=== PATIENT | female | born 1950 | race Caucasian/White ===

== ENCOUNTER 2016-05-21 10:22 | Inpatient (IN) | payer MEDICARE ==
[2016-05-21 11:25] LABS: Hematocrit 25 % (35-47); Hemoglobin 6.8 g/dl (12.0-16.0); Mean Corpuscular HGB Conc 27 g/dl (31-36); Mean Corpuscular Hemoglobin 14 pg (27-31); Mean Corpuscular Volume 51 fL (80-97); Red Blood Count 4.91 10^6/ul (4.0-5.4); Red Cell Distribution Width 23 % (10.5-15); White Blood Count 5.6 10^3/ul (3.5-10.8)
[2016-05-21 11:28] LABS: Comments Flag Yes
[2016-05-21 11:29] LABS: Add Diff/Slide Review? Slide Review Added
[2016-05-21 11:47] LABS: ALT 20 U/L (7-52); AST 24 U/L (13-39); Albumin 3.9 g/dL (3.2-5.2); Alkaline Phosphatase 65 U/L (34-104); Anion Gap 7 mmol/L (2-11); BUN/Creatinine Ratio 15.1 (8-20); Blood Urea Nitrogen 14 mg/dL (6-24); CO2 Carbon Dioxide 25 mmol/L (22-32); Calcium 9.1 mg/dL (8.6-10.3); Chloride 101 mmol/L (101-111); EGFR African American 77.6 (>60); EGFR Non-African American 60.3 (>60); Globulin 2.4 g/dL (2-4); Glucose 124 mg/dL (70-100); Potassium 3.3 mmol/L (3.5-5.0); Sodium 133 mmol/L (133-145); Total Protein 6.3 g/dL (6.4-8.9)
[2016-05-21 11:53] LABS: Add Path Review? YES; Hypochromasia 2+; Microcytosis 3+; Target Cells 1+; Tear Drop Cells 1+
[2016-05-21] MEDS ORDERED: Potassium Chlor TAB* 20 MEQ TAB.ER PO ONE (12:46)
[2016-05-21 13:27] LABS: Corrected Retic Count 0.9 % (0.5-1.5); Immature Retic Fraction 0.48; Mean Platelet Volume 9 um3 (7.4-10.4)
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
[2016-05-21 13:30] LABS: Comments Flag Yes
[2016-05-21] MEDS ORDERED: Acetaminophen TAB* 325 MG PO PRN (13:43)
[2016-05-21 14:00] LABS: Lipase 28 U/L (11.0-82.0)
[2016-05-21 14:12] LABS: Total Iron Binding Capacity 514 mcg/dL (250-450); Transferrin 367 mg/dL (203-362)
[2016-05-21 14:32] LABS: Ferritin < 10.0 ng/mL (11-307)
[2016-05-21 14:36] LABS: Folate > 20.00 ng/mL (>3.99)
[2016-05-21 14:37] LABS: Vitamin B12 849 pg/mL (180-914)
[2016-05-21 14:39] LABS: Iron < 15 ug/dL (50-212)
[2016-05-21] MEDS: Pantoprazole IV* 40 MG IV ONE ×2 (15:04→15:34)
[2016-05-21] MEDS: KCL 20 MEQ/100 ML IVPREMIX* 20 MEQ/100 ML BAG IV SCH ×2 (15:16→21:19)
[2016-05-21] MEDS ORDERED: Midazolam* 1 MG/ML 10 ML VIAL (10 MG) ONE (17:03)
[2016-05-21] MEDS ORDERED: fentaNYL* 50 MCG/ML 2 ML VIAL (100 MCG VIAL) ONE (17:04)
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
[2016-05-21] MEDS: Pantoprazole IV* 80 MG in NS 0.9% 250 ML* 250 ML IVPB SCH (21:00)
[2016-05-21] MEDS: NS 0.9% 1000 ML* 1,000 ML IV SCH (21:00)
[2016-05-21] MEDS ORDERED: Temazepam CAP* 15 MG PO PRN (21:00)
[2016-05-21] MEDS ORDERED: KCL 20 MEQ/100 ML IVPREMIX* 20 MEQ/100 ML BAG ONE (21:17)
[2016-05-22] MEDS ORDERED: PEG 3000 GI LAVAGE* 1 GALLON PO ONE (04:00)
[2016-05-22] MEDS: Pantoprazole IV* 80 MG in NS 0.9% 250 ML* 250 ML IVPB SCH (04:16)
[2016-05-22] MEDS: NS 0.9% 1000 ML* 1,000 ML IV SCH ×2 (06:00→16:43)
[2016-05-22] MEDS ORDERED: Pantoprazole IV* 80 MG in NS 0.9% 250 ML* 250 ML IVPB SCH (06:30)
[2016-05-22 07:29] LABS: BUN/Creatinine Ratio 9.1 (8-20); Calcium 8.7 mg/dL (8.6-10.3); EGFR African American 96.5 (>60); Hematocrit 29 % (35-47); Hemoglobin 8.7 g/dl (12.0-16.0); Mean Corpuscular HGB Conc 30 g/dl (31-36); Mean Corpuscular Hemoglobin 17 pg (27-31); Mean Corpuscular Volume 59 fL (80-97); Potassium 4.2 mmol/L (3.5-5.0); Red Cell Distribution Width 31 % (10.5-15); White Blood Count 5.8 10^3/ul (3.5-10.8)
[2016-05-22 07:30] LABS: Comments Flag Yes
[2016-05-22 07:31] LABS: Add Diff/Slide Review? Slide Review Added
[2016-05-22] MEDS ORDERED: fentaNYL* 50 MCG/ML 2 ML VIAL (100 MCG VIAL) ONE (08:37)
[2016-05-22] MEDS ORDERED: Midazolam* 1 MG/ML 10 ML VIAL (10 MG) ONE (08:37)
[2016-05-22] MEDS ORDERED: Pneumococcal *Vac Polyvalent 0.5 ML VIAL IM ONE (09:00)
--- NOTE | 2016-05-22 13:29 | PRO ---
DATE OF PROCEDURE: 05/21/16 - ROOM #421 PROCEDURE: Upper endoscopy. MEDICINES USED: Versed 5 mg IV, Fentanyl 25 mcg IV. NARRATIVE: This is a 66-year-old woman who was admitted today with anemia, recurrent abdominal pain, and weight loss. She has described abdominal pain postprandially for the last month and believes she has lost about 15 pounds. She was evaluated at the [facility] which included blood tests showing anemia and was instructed to come to our hospital. On arrival here, she had a hemoglobin of 6.8 with an MCV of 51. She was describing abdominal pain. Because of her symptoms, upper endoscopy is now being carried out. PROCEDURE IN DETAIL: After the procedure was discussed with the patient, risks and benefits were outlined, written consent was obtained. The patient was placed in the left lateral decubitus position and conscious sedation was administered. A video diagnostic gastroscope was inserted orally and passed very carefully into the esophagus. The esophagus, stomach, and duodenum to the second to third portion were visualized. The patient tolerated the procedure well, there were no immediate complications. FINDINGS: The esophagus was normal. There was no evidence of erosive change, stricture, or any inflammatory change. The stomach was entered. There was no blood in the stomach. There was a trace amount of bile. The gastric mucosa was normal without any ulceration, mass, or inflammatory change. There was no evidence of a hiatal hernia when viewed in retroflexion. The pylorus was normal and patent. The duodenum was normal and the second to third portion of the duodenum was normal with a normal folding pattern. CONCLUSION: A normal upper endoscopy. RECOMMENDATIONS: Given the patient's profound anemia and abdominal pain, I would recommend a colonoscopy and that was discussed with her and her over the phone. CC: Sumit Hastings NP* [id number]/[facility] #: [id number] KAYE
[2016-05-22] MEDS ORDERED: Iohexol 300* (CONTRAST) 10 ML SDV IV ONE (15:17)
--- NOTE | 2016-05-22 15:42 | RAD ---
INDICATION: Abdominal pain, GI bleeding. COMPARISON: There are no prior studies available for comparison. TECHNIQUE: A CT scan of the abdomen and pelvis was performed with intravenous and oral contrast following intravenous injection of 72 ml of Omnipaque 300 nonionic contrast. Contiguous axial sections were obtained from the lung bases through the symphysis pubis. Images were reconstructed in the coronal and sagittal planes. FINDINGS: There is a small dependent infiltrate in the left lower lobe suggestive of atelectasis. No pleural effusion is present. There is a small pericardial effusion present. The liver is normal in size without significant focal abnormality. No calcified gallstones are seen. The spleen is mildly enlarged. The pancreas is within normal limits in size. The kidneys and adrenal glands are normal in size. No hydronephrosis is seen. No significant focal renal abnormality is seen. The aorta is normal in caliber and demonstrates homogeneous contrast opacification. No significant enlarged retroperitoneal lymph nodes are seen. The stomach is nondistended. There is moderate distention of the mid and distal small bowel. The very distal ileum appears nondistended. There appears to be a transition point in the pelvis on the right side. The colon is nondistended. These findings are most consistent with a partial small bowel obstruction. The appendix is nonvisualized. There is no evidence for diverticulitis or colitis. The uterus is retroverted and normal in size. No free intraperitoneal air or fluid is seen. No significant focal osseous abnormality is seen. IMPRESSION: 1. SMALL PERICARDIAL EFFUSION. 2. FINDINGS MOST CONSISTENT WITH A PARTIAL DISTAL SMALL BOWEL OBSTRUCTION. 3. MILD SPLENOMEGALY.
--- NOTE | 2016-05-22 17:28 | PN ---
Subjective Date of Service: 05/22/16 Interval History: pt feels better. seen after a negative colonoscopy. Denies abd pain, but had been NPO for most of her time at [facility]. No n/v no BM's Objective Active Medications: Acetaminophen (Tylenol Tab*) 650 mg PO Q4H PRN PRN Reason: FEVER/PAIN Sodium Chloride (Ns 0.9% 1000 Ml*) 1,000 mls @ 75 mls/hr IV PER RATE SAVI Last Admin: 05/22/16 16:43 Dose: 75 mls/hr Temazepam (Restoril Cap*) 15 mg PO BEDTIME PRN PRN Reason: INSOMNIA Vital Signs 05/21/16 05/21/16 05/21/16 18:42 20:00 20:41 Temperature 97.8 F 97.7 F Pulse Rate 62 56 Respiratory 18 18 Rate Blood Pressure 114/52 114/64 (mmHg) O2 Sat by Pulse 98 Oximetry 05/21/16 05/22/16 05/22/16 23:56 01:00 03:28 Temperature 97.3 F Pulse Rate 52 60 Respiratory 16 16 Rate Blood Pressure 126/59 141/62 (mmHg) O2 Sat by Pulse 100 100 Oximetry 05/22/16 05/22/16 05/22/16 07:37 08:00 10:45 Temperature 97.1 F Pulse Rate 58 55 Respiratory 15 16 14 Rate Blood Pressure 131/54 115/45 (mmHg) O2 Sat by Pulse 100 100 Oximetry 05/22/16 05/22/16 11:03 15:37 Temperature 97.1 F 96.5 F Pulse Rate 55 51 Respiratory 14 16 Rate Blood Pressure 115/45 105/45 (mmHg) O2 Sat by Pulse 100 100 Oximetry Oxygen Devices in Use Now: None Appearance: 66 yo F in nAd, AAOx3 Eyes: No Scleral Icterus, PERRLA Ears/Nose/Mouth/Throat: NL Teeth, Lips, Gums, Mucous Membranes Moist Neck: NL Appearance and Movements; NL JVP, Trachea Midline Respiratory: Symmetrical Chest Expansion and Respiratory Effort, Clear to Auscultation Cardiovascular: NL Sounds; No Murmurs; No JVD, RRR Abdominal: NL Sounds; No Tenderness; No Distention Lymphatic: No Cervical Adenopathy Extremities: No Edema, No Clubbing, Cyanosis Skin: No Rash or Ulcers, No Nodules or Sclerosis Neurological: Alert and Oriented x 3 Result Diagrams: 05/22/16 06:45 05/22/16 06:45 Assess/Plan/Problems-Billing Assessment: 66 yo F presents after a bout of gastroenteritis 3 weeks ago with epigastric abd pain and symptomatic anemia. - Patient Problems (1) Abdominal pain Comment: EGD and colonoscopy negative, appreciate 's consult. CT abd showed mild splenomegaly and partial SBO. Pt passes flatus. will monitor x 24H on clears and cont IVF. Stop Protonix gtt. (2) Microcytic anemia Comment: MCV very low. suspect progression of a chronic condition. S/p 2 U PRBC transfusion on 05/21/16, Hb odilon appropiately. Stool heme neg, suspect slow intermittent GI bleed from small bowel. (3) DVT prophylaxis Comment: ambulation.
--- NOTE | 2016-05-22 23:19 | PRO ---
DATE OF PROCEDURE: 05/22/16 - ROOM #421 PROCEDURE: Colonoscopy. MEDICINES: Versed 8 mg IV, Fentanyl 75 mcg IV. NARRATIVE: This is a 66-year-old woman who is currently admitted for iron- deficiency anemia and abdominal pain. She underwent an upper endoscopy yesterday, which was a normal study. She was prepared last night for colonoscopy with a purge and is now undergoing colonoscopy. DESCRIPTION OF PROCEDURE: After the procedure was discussed with the patient, risks and benefits were outlined, written consent was obtained. The patient was placed in the left lateral decubitus position and a rectal exam was performed. The rectal exam was normal without any palpable abnormality. At that point, a colonoscopy was carried out. A video adult flexible colonoscope was inserted anally and advanced very carefully into the cecum. The cecum was identified by the appendiceal orifice and the ileocecal valve. The terminal ileum was briefly intubated. The preparation was good. The patient tolerated the procedure well and there were no immediate complications. FINDINGS: Colonoscopy into the distal terminal ileum was performed. The ileum was inspected for perhaps 15 to 20 cm and entirely normal without any inflammatory change or mass. The colon was thereafter very carefully inspected. The colonic mucosa was normal. Again, there was no mass, polyp, inflammatory change, or evidence of diverticulosis. The submucosal vascular pattern was normal without any evidence of AVM. The rectum was viewed both in the forward view and retroflex manner and was normal as well. CONCLUSION: Normal colonoscopy into the terminal ileum. RECOMMENDATION: Certainly, her presentation remains worrisome. However, with the negative upper endoscopy and colonoscopy, I am going to pursue an abdominal CAT scan. If small bowel source bleeding is considered, then further studies perhaps with capsule endoscopy would be the next step. CC: Sumit Hastings NP* [id number]/[facility] #: [id number] KAYE
[2016-05-23 05:50] LABS: Hematocrit 30 % (35-47); Hemoglobin 8.5 g/dl (12.0-16.0); Mean Corpuscular HGB Conc 29 g/dl (31-36); Mean Corpuscular Hemoglobin 17 pg (27-31); Mean Platelet Volume 10 um3 (7.4-10.4); Red Blood Count 5.16 10^6/ul (4.0-5.4); White Blood Count 7.3 10^3/ul (3.5-10.8)
[2016-05-23 05:53] LABS: Comments Flag Yes; Mean Corpuscular Volume 57 fL (80-97)
[2016-05-23 05:54] LABS: Red Cell Distribution Width 30 % (10.5-15)
[2016-05-23 05:55] LABS: BUN/Creatinine Ratio 4.9 (8-20); Calcium 8.6 mg/dL (8.6-10.3); EGFR African American 89.7 (>60); EGFR Non-African American 69.7 (>60); Potassium 3.5 mmol/L (3.5-5.0)
[2016-05-23] MEDS: NS 0.9% 1000 ML* 1,000 ML IV SCH ×2 (06:17→19:36)
--- NOTE | 2016-05-23 10:51 | PN ---
Subjective Date of Service: 05/23/16 Interval History: Pt still has occasional epigastric pain. No BM since admission. Passing flatus. Objective Active Medications: Acetaminophen (Tylenol Tab*) 650 mg PO Q4H PRN PRN Reason: FEVER/PAIN Sodium Chloride (Ns 0.9% 1000 Ml*) 1,000 mls @ 75 mls/hr IV PER RATE SAVI Last Admin: 05/23/16 06:17 Dose: 75 mls/hr Temazepam (Restoril Cap*) 15 mg PO BEDTIME PRN PRN Reason: INSOMNIA Vital Signs 05/22/16 05/22/16 05/22/16 19:19 20:00 23:11 Temperature 97.3 F 97.9 F Pulse Rate 65 60 Respiratory 16 16 16 Rate Blood Pressure 128/61 113/39 (mmHg) O2 Sat by Pulse 100 99 Oximetry 05/23/16 05/23/16 07:21 07:46 Temperature 98.1 F Pulse Rate 68 Respiratory 16 16 Rate Blood Pressure 130/58 (mmHg) O2 Sat by Pulse 100 Oximetry Oxygen Devices in Use Now: None Appearance: 66 yo F in nAd, aAOx3 Eyes: No Scleral Icterus, PERRLA Ears/Nose/Mouth/Throat: NL Teeth, Lips, Gums, Mucous Membranes Moist Neck: NL Appearance and Movements; NL JVP, Trachea Midline Respiratory: Symmetrical Chest Expansion and Respiratory Effort, Clear to Auscultation Cardiovascular: NL Sounds; No Murmurs; No JVD, RRR Abdominal: - - mild epigastric tenderness, no rbound, no guarding, BS+ Lymphatic: No Cervical Adenopathy Extremities: No Edema, No Clubbing, Cyanosis Skin: No Rash or Ulcers, No Nodules or Sclerosis Neurological: Alert and Oriented x 3, NL Muscle Strength and Tone Result Diagrams: 05/23/16 05:29 05/23/16 05:29 Assess/Plan/Problems-Billing Assessment: 66 yo F presents after a bout of gastroenteritis 3 weeks ago with epigastric abd pain and symptomatic anemia. - Patient Problems (1) Abdominal pain Comment: EGD and colonoscopy negative, appreciate 's consult. CT abd showed mild splenomegaly and partial SBO. Pt passes flatus. Dr. Dee discussed the case with Dr. Sanabria. Plan for possible exploratory laparotomy in the nearest future. (2) Microcytic anemia Comment: MCV very low. suspect progression of a chronic condition. S/p 2 U PRBC transfusion on 05/21/16, Hb odilon appropiately. Stool heme neg, suspect slow intermittent GI bleed from small bowel. (3) DVT prophylaxis Comment: ambulation. Status and Disposition: inpatient for partial SBO
--- NOTE | 2016-05-23 21:34 | CONS ---
CONSULTATION REPORT: DATE OF CONSULT: 05/23/16 HISTORY OF PRESENT ILLNESS: The patient is a 66-year-old female who presented to the hospital here after being seen by her primary doctor and outpatient Gastroenterology and found to be severely anemic. By history, she has been having abdominal symptoms for a little over a month now. Initially, she thought it was kind of like a stomach bug or stomach flu with nausea, vomiting, and a little bit of diarrhea. Over the last couple of weeks, it has been more cramping, pressure, and bloating every time she eats. As such, she has curtailed her oral intake and has lost almost 20 pounds over the last month. She was admitted for dyspnea, weakness, and found to be severely anemic. PAST MEDICAL HISTORY: Pretty benign. She has had no previous abdominal surgery. No chronic abdominal symptoms. Usually has good appetite, good bowel function. No recent accident, injury, or trauma. She does not have any chronic medical illnesses. MEDICATIONS: She denies regular medication. SOCIAL HISTORY: She is a nonsmoker, nondrinker. 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 She lives with her . PHYSICAL EXAM: She is well-developed, somewhat slender-appearing female consistent with stated age. She does not appear acutely ill. She does appear a little pale. Heart is regular. Respirations are easy, unlabored. No unusual sounds. Abdomen is slightly bloated, soft, nontender, mild tympany, not very impressive. No hernias. No incisions. No palpable masses. No guarding or rebound. Extremities are well perfused and without edema. DIAGNOSTIC STUDIES/LAB DATA: Reveal white blood count 7000; hemoglobin 8.5, that is after transfusion, she was 6.8 on presentation; her MCV is 57; platelet count is 177. Her electrolytes are normal. Liver chemistries show normal bilirubin, transaminases, normal lipase, B12, and folate. Iron is not surprisingly very low at 15. Renal function is normal. She has had an upper endoscopy which is benign, a lower endoscopy which is benign. She has had a CT scan of the abdomen which is consistent with partial small bowel obstruction with a transition somewhere in the mid ileum without any definite mass identified. IMPRESSION: A 66-year-old female with approximately a month of abdominal symptoms presenting with microcytic anemia and partial bowel obstruction with negative upper and lower endoscopy. This is suspicious for either a small bowel GIST or small bowel lymphoma and I do not think additional diagnostic imaging is likely to be helpful. I think exploratory laparotomy with an eye towards resolving her small bowel obstruction was indicated and I have discussed this with her fully. She understands the procedure, the rationale, the risks, the uncertainties of the diagnosis at present, and the expected recovery and we will try to plan this in the near future as soon as the operative schedule permits. CC: Dr. Romeo Sanabria; [facility] * [id number]/[facility] #: [id number] MTDD
[2016-05-24 09:20] LABS: Hematocrit 31 % (35-47); Hemoglobin 8.5 g/dl (12.0-16.0)
[2016-05-24 09:24] LABS: Comments Flag Yes
[2016-05-24] MEDS ORDERED: GENTAMICIN ADULT IVPB ONE (09:30)
[2016-05-24] MEDS ORDERED: NS 0.9% IVPB ONE (09:30)
[2016-05-24] MEDS ORDERED: metroNIDAZOLE IV 500 MG/100ML* 500 MG/100 ML BAG IVPB ONE (10:00)
[2016-05-24] MEDS ORDERED: fentaNYL* 50 MCG/ML 5 ML VIAL (250 MCG VIAL) ONE (11:09)
[2016-05-24] MEDS ORDERED: Rocuronium* 10 MG/ML VIAL ONE (11:09)
[2016-05-24] MEDS ORDERED: Bupivacaine 0.25% SDV* 30 ML ONE (11:10)
[2016-05-24] MEDS ORDERED: Midazolam* 1 MG/ML 2 ML VIAL (2 MG) ONE (11:10)
[2016-05-24] MEDS ORDERED: Propofol* 10 MG/ML 20 ML BTL IV PUSH ONE (11:10)
[2016-05-24] MEDS ORDERED: KETAMINE HCL* 50 MG/ML 10 ML VIAL ONE (11:27)
[2016-05-24] MEDS ORDERED: Glycopyrrolate IV* 0.2 MG/ML 1 ML VIAL ONE (12:13)
[2016-05-24] MEDS ORDERED: Neostigmine Methylsulfate* 2 MG/2 ML SYRINGE ONE (12:13)
[2016-05-24] MEDS ORDERED: Ondansetron INJ* 2 MG/ML VIAL IV PRN ×2 (13:26→13:56)
[2016-05-24] MEDS ORDERED: Ketorolac INJ* 30 MG/ML 1 ML VIAL IV PRN (13:26)
--- NOTE | 2016-05-24 13:55 | SURGPN ---
Brief Operative Note - Surgery Procedures: Procedures OPERATIVE REPORT PRE-OP: High Grade small bowel obstruction, anemia POST-OP:Same, small bowel mass in agk-ts-yguyeu ileum causing near complete obstruction PROCEDURE: Exploratory laparotomy with small bowel resection and primary anastomosis, biopsy of mesenteric implant in terminal ileum SURGEON: MD Yaritza ANESTHESIA:Dr. Miller, General ASST: VARSHA Grubbs; VARSHA Abbott IVF: 900 cc crystalloid EBL: < 100 cc SPECIMEN: 1. Portion of ileum 2. Distal small bowel mesentery implant DRAIN: none URINE: 500 cc WOUND CLASS: 3 COMPLICATIONS: none TO PACU
[2016-05-24] MEDS ORDERED: Morphine PCA ADULT* 5 MG/ML 30 ML PCA SCH (14:00)
[2016-05-24] MEDS ORDERED: fentaNYL* 50 MCG/ML 2 ML VIAL (100 MCG VIAL) ONE ×4 (14:08→15:15)
[2016-05-24] MEDS: fentaNYL* 50 MCG/ML 2 ML VIAL (100 MCG VIAL) IV PRN ×5 (14:09→14:58)
[2016-05-24] MEDS ORDERED: Morphine PCA ADULT* 5 MG/ML 30 ML ONE (14:14)
[2016-05-24] MEDS ORDERED: Ondansetron INJ* 2 MG/ML VIAL ONE (14:16)
[2016-05-24] MEDS ORDERED: Ketorolac INJ* 30 MG/ML 1 ML VIAL ONE (14:20)
[2016-05-24] MEDS ORDERED: HYDROmorphone INJ* 1 MG/ML CARPUJECT SYRINGE IV SLOW PU ONE (15:27)
[2016-05-24] MEDS ORDERED: Midazolam* 1 MG/ML 2 ML VIAL (2 MG) IV ONE (15:31)
[2016-05-24] MEDS ORDERED: HYDROmorphone INJ* 1 MG/ML CARPUJECT SYRINGE ONE (15:37)
[2016-05-24] MEDS ORDERED: Magnesium Sulfate 1 GM IV* 1 GM/100 ML BAG IV ONE (16:00)
[2016-05-24] MEDS ORDERED: HYDROmorphone PCA* 20 MG/20 ML PCA.SYRING ONE (16:29)
[2016-05-24] MEDS ORDERED: HYDROmorphone PCA* 20 MG/20 ML PCA.SYRING PCA SCH (17:00)
[2016-05-24] MEDS: Heparin VIAL(*) 5000 UNITS/ML VIAL (FIVE THOUSAND) SUBCUT SCH (21:59)
[2016-05-24] MEDS: Ketorolac INJ* 15 MG/ML 1 ML VIAL IV PUSH PRN (23:37)
[2016-05-25] MEDS: NS 0.9% 1000 ML* 1,000 ML IV SCH ×2 (03:55→18:34)
--- NOTE | 2016-05-25 05:05 | OP ---
DATE OF OPERATION: 05/24/16 - ROOM #334 DATE OF : 50 SURGEON: Joey Vigil MD DRY COLOR MIXER: 1. VARSHA E[place] 2. VARSHA Williamson ANESTHESIOLOGIST: Daniel Miller DO ANESTHESIA: General PRE-OP DIAGNOSES: 1. High-grade partial small bowel obstruction. 2. Profound microcytic anemia. POST-OP DIAGNOSES: 1. High-grade partial small bowel obstruction. 2. 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 3. Small mesenteric nodule in the mesentery of the terminal ileum. OPERATIVE PROCEDURE: 1. Exploratory laparotomy with small bowel resection and removal of mass with primary stapled anastomosis. 2. Biopsy of small bowel mesenteric implant. ESTIMATED BLOOD LOSS: Less than 100 cc. IV FLUIDS: 900 cc crystalloid. URINE OUTPUT: 500 cc. SPECIMENS: 1. Portion of small bowel to include small bowel mass. 2. Small bowel mesenteric deposit or implant. WOUND CLASSIFICATION: III. DRAINS: None. COMPLICATIONS: None. FINDINGS: In the bsu-rt-ofriit terminal ileum approximately 3.5 feet proximal to the ileocecal valve with a firm mass causing the small bowel to knuckle upon itself causing a near complete obstruction with proximally dilated small bowel and collapsed bowel distally. There was also apparent involvement of the associated and mesentery and lymph nodes in proximity as well as what appeared to be a tumor extension into the mesentery of the small bowel at the base at the mesentery/bowel boundary. Liver, gallbladder, the remainder of the small bowel as well as the colon appeared to be normal. There were, however, multiple small 3-4 mm deposits of raised white appearing nodules on the surface of the mesentery of the distal and more proximal small bowel mesentery and one of these areas was biopsied as above. Uterus and both ovaries were identified and were unremarkable. BRIEF HISTORY: Ms. Violeta Guo is a 66-year-old woman presented and was admitted to the hospitalist service with a month of GI complaints of nausea, crampy abdominal pain, distention and very loose bowel movements. She was found to be profoundly anemic with a microcytic anemia. She underwent both an upper and lower endoscopy which were unremarkable. A CT scan of the abdomen and pelvis showed proximal small bowel dilation with distal collapse worrisome for a bowel obstruction with transition point. However, there was no evidence of mass or other acute findings. In light of her history that may well be consistent with a small bowel obstruction and the finding on the CT scan in conjunction with the normal upper and lower endoscopy treatment plan has been formulated with both the surgical and medical service to include an exploratory laparotomy for a presumed small bowel mass causing obstruction as well as hemorrhage with chronic anemia. The procedure was discussed with the patient and her and the risks that are, but not limited to bleeding, infection, intraabdominal abscess formation, injury to peritoneal and retroperitoneal structures, anastomotic leak, possible ostomy, ileostomy and/or colostomy, the risk of abscess formation and the risk of general anesthesia, deep vein thrombosis, prolonged hospital recovery times were all explained. DESCRIPTION OF PROCEDURE: Preoperative antibiotics were administered, written and informed consent was obtained and the abdomen was marked with an indelible ink. The patient was taken to the operating room placed in supine position, sequential compression devices and a warming blanket were applied. General anesthesia was administered. A Calderon catheter was inserted. A nasogastric tube was inserted for the case, but this was discontinued at the end of the procedure. The abdomen was prepped and draped in the usual sterile fashion. Time-out verification was completed. Next, a midline incision from just above the umbilicus to midway between the umbilicus and pubic bone was then made with a sharp knife and peritoneal cavity was entered under direct vision. There was a small amount of serous fluid in the abdominal cavity and immediately noted was a partially distended transverse colon and left colon. The incision was extended slightly superior to the umbilicus and I was able to palpate the entire liver and visualize this. It appeared to be unremarkable without evidence of mass and its surface appeared to be normal in color and contour. The gallbladder was normal. I appreciate no abnormality palpated in the gallbladder. The stomach was normal. The entire colon which was gas filled was unremarkable including the right colon, transverse colon, descending, and rectum. The both ovaries were identified. They were small and atrophic and the uterus was normal. No evidence of neoplastic process was noted here. I was then able to identify the small bowel starting at the ligament of Treitz. This was not particularly distended; however, we were able to follow this distally and it progressively became more distended somewhat more edematous with a thicker wall consistent with obstruction and at about the distal part of the mid ileum, there was a "knuckled area" of small bowel with an obvious mass which obviously involved the serosa and extended into the mesentery of the small bowel consistent with a neoplastic process most likely a malignant lesion causing a high-grade bowel obstruction. The bowel distal to this was collapsed. There were also some enlarged nodes in the mesentery, which were easily palpable. In addition, there was a small nodule on the distal small bowel mesentery which was excised and sent separately for specimen as well. Also noted were multiple of these deposits in the more proximal and distal mesentery of the small bowel. With further careful evaluation there seemed to be lymph nodes in the mesentery of the small bowel at the site of the tumor and also some verrucous type implants in the mesentery. Next, a generous margin of both proximal and distal margin was identified in anticipation of resection and the proximal and distal portion of small bowel were divided with two separate blue loads of SAM 80 stapler. The mesentery was then divided to include as many lymph nodes and the obvious mass as possible. The mesentery was divided with a combination of both the handheld LigaSure device as well as ligation with 2-0 silk sutures. The specimen was sent in fresh saline after discussion with Pathology so that appropriate studies could be done and decision made by Pathology as to how to prepare the specimen for analysis in light of the unknown diagnosis. Next, the planned anastomosis was then performed. The bowel came together nicely with no tension in a stapled functional end-to-end [id number] anastomosis using the SAM 80 stapler and the long axis of the bowel was fired and the common rent was closed with the TA 90 blue stapler load. The anastomosis was under no tension, the entire bowel was viable and suture lines were oversewn with interrupted 3-0 silk sutures. Mesenteric rent was closed with interrupted 3-0 silk sutures as well. The entire abdomen was then thoroughly irrigated and hemostasis was assured. All sponge, needle, and laparotomy counts were reported as correct. The small bowel was placed back in the abdominal cavity and the midline fascia was then closed with interrupted #1 Polysorb suture. The skin was approximated with stapling device and dry sterile dressings were applied. The patient tolerated the procedure well, was taken to the recovery room in stable condition. CC: [facility]; [facility]* [id number]/[facility] #: [id number] KAYE
[2016-05-25] MEDS: Heparin VIAL(*) 5000 UNITS/ML VIAL (FIVE THOUSAND) SUBCUT SCH ×3 (05:33→22:29)
[2016-05-25] MEDS: Ketorolac INJ* 15 MG/ML 1 ML VIAL IV PUSH PRN (05:34)
[2016-05-25 06:49] LABS: Hematocrit 30 % (35-47); Hemoglobin 8.7 g/dl (12.0-16.0); Mean Corpuscular HGB Conc 29 g/dl (31-36); Mean Corpuscular Hemoglobin 16 pg (27-31); Mean Platelet Volume 9 um3 (7.4-10.4); Red Blood Count 5.33 10^6/ul (4.0-5.4)
[2016-05-25 06:51] LABS: Comments Flag Yes; Mean Corpuscular Volume 57 fL (80-97)
[2016-05-25 06:52] LABS: Red Cell Distribution Width 30 % (10.5-15)
[2016-05-25 07:11] LABS: BUN/Creatinine Ratio 8.5 (8-20); Calcium 8.2 mg/dL (8.6-10.3); EGFR African American 105.9 (>60); EGFR Non-African American 82.4 (>60); Potassium 3.2 mmol/L (3.5-5.0)
--- NOTE | 2016-05-25 07:22 | PN ---
Subjective Date of Service: 05/25/16 Interval History: Adequate pain relief with OPERATIONS CONSULTANT. No flatus. No nauea. No new c/o. Objective Active Medications: Acetaminophen (Tylenol Tab*) 650 mg PO Q4H PRN PRN Reason: FEVER/PAIN Heparin Sodium (Porcine) (Heparin Vial(*)) 5,000 units SUBCUT Q8HR [facility] Last Admin: 05/25/16 05:33 Dose: 5,000 units Sodium Chloride (Ns 0.9% 1000 Ml*) 1,000 mls @ 75 mls/hr IV PER RATE [facility] Last Admin: 05/25/16 03:55 Dose: 75 mls/hr Hydromorphone HCl (Dilaudid [employer]*) 20 mg in 20 mls @ 0 mls/hr OPERATIONS CONSULTANT .change Q24H [facility]; Per Protocol PRN Reason: Protocol Iron Sucrose 200 mg/ Sodium (Chloride) 260 mls @ 260 mls/hr IVPB DAILY [facility] Stop: 05/26/16 15:00 Ketorolac Tromethamine (Toradol Inj*) 15 mg IV PUSH Q6H PRN PRN Reason: PAIN Last Admin: 05/25/16 05:34 Dose: 15 mg Ondansetron HCl (Zofran Inj*) 4 mg IV Q6H PRN PRN Reason: NAUSEA Temazepam (Restoril Cap*) 15 mg PO BEDTIME PRN PRN Reason: INSOMNIA Vital Signs 05/24/16 05/24/16 05/24/16 08:00 08:14 13:55 Temperature 98.8 F 97.0 F Pulse Rate 58 60 Respiratory 18 16 18 Rate Blood Pressure 121/58 154/82 (mmHg) O2 Sat by Pulse 100 100 Oximetry 05/24/16 05/24/16 05/24/16 14:00 14:05 14:09 Temperature Pulse Rate 54 55 Respiratory 20 20 20 Rate Blood Pressure 162/66 152/67 (mmHg) O2 Sat by Pulse 100 99 Oximetry 05/24/16 05/24/16 05/24/16 14:10 14:15 14:27 Temperature Pulse Rate 53 55 Respiratory 20 22 20 Rate Blood Pressure 160/60 158/60 (mmHg) O2 Sat by Pulse 100 100 Oximetry 05/24/16 05/24/16 05/24/16 14:28 14:30 14:39 Temperature Pulse Rate 55 55 Respiratory 20 20 20 Rate Blood Pressure 158/60 167/67 (mmHg) O2 Sat by Pulse 100 100 Oximetry 05/24/16 05/24/16 05/24/16 14:45 14:58 15:00 Temperature 97.2 F Pulse Rate 59 48 Respiratory 16 22 18 Rate Blood Pressure 174/59 175/66 (mmHg) O2 Sat by Pulse 100 100 Oximetry 05/24/16 05/24/16 05/24/16 15:15 15:27 15:30 Temperature 98.1 F Pulse Rate 52 67 58 Respiratory 20 14 20 Rate Blood Pressure 171/63 148/51 161/65 (mmHg) O2 Sat by Pulse 100 100 100 Oximetry 05/24/16 05/24/16 05/24/16 15:38 15:45 16:00 Temperature 98.2 F Pulse Rate 57 61 Respiratory 22 22 26 Rate Blood Pressure 168/64 162/66 (mmHg) O2 Sat by Pulse 100 100 Oximetry 05/24/16 05/24/16 05/24/16 16:15 16:30 16:45 Temperature Pulse Rate 60 64 63 Respiratory 20 17 14 Rate Blood Pressure 158/64 160/67 159/65 (mmHg) O2 Sat by Pulse 100 100 100 Oximetry 05/24/16 05/24/16 05/24/16 16:54 17:00 17:15 Temperature 96.8 F Pulse Rate 61 67 66 Respiratory 17 15 15 Rate Blood Pressure 160/67 170/64 155/68 (mmHg) O2 Sat by Pulse 100 100 100 Oximetry 05/24/16 05/24/16 05/24/16 17:30 18:00 18:03 Temperature 98.1 F Pulse Rate 68 67 Respiratory 16 14 14 Rate Blood Pressure 143/66 148/51 (mmHg) O2 Sat by Pulse 100 100 100 Oximetry 05/24/16 05/24/16 05/24/16 18:30 19:00 19:12 Temperature 98.4 F Pulse Rate 67 Respiratory 14 14 14 Rate Blood Pressure 137/59 (mmHg) O2 Sat by Pulse 100 100 100 Oximetry 05/24/16 05/24/16 05/24/16 19:30 20:15 20:30 Temperature Pulse Rate Respiratory 14 14 14 Rate Blood Pressure (mmHg) O2 Sat by Pulse 96 97 Oximetry 05/24/16 05/24/16 05/24/16 20:58 21:30 22:30 Temperature 98.6 F Pulse Rate 98 Respiratory 12 13 15 Rate Blood Pressure 136/68 (mmHg) O2 Sat by Pulse 99 98 98 Oximetry 05/24/16 05/24/16 05/25/16 23:30 23:33 01:30 Temperature 98.9 F Pulse Rate 102 Respiratory 20 20 17 Rate Blood Pressure 127/71 (mmHg) O2 Sat by Pulse 97 100 98 Oximetry 05/25/16 05/25/16 05/25/16 02:04 03:30 05:30 Temperature 98.0 F Pulse Rate 95 Respiratory 17 16 17 Rate Blood Pressure 108/45 (mmHg) O2 Sat by Pulse 99 97 96 Oximetry 05/25/16 05/25/16 06:30 07:00 Temperature Pulse Rate Respiratory 17 16 Rate Blood Pressure (mmHg) O2 Sat by Pulse 96 97 Oximetry Oxygen Devices in Use Now: None Appearance: Alert, partly up in bed. In good spirits. Looks comfortable. Eyes: No Scleral Icterus Ears/Nose/Mouth/Throat: Clear Oropharnyx, Mucous Membranes Moist Neck: NL Appearance and Movements; NL JVP, No Thyroid Enlargement, Masses Respiratory: Symmetrical Chest Expansion and Respiratory Effort, Clear to Auscultation, Clear to Percussion Cardiovascular: NL Sounds; No Murmurs; No JVD, RRR, No Edema, - Abdominal: - - Soft, mildly tender. No BS. No mass. Extremities: No Edema, No Clubbing, Cyanosis, - Skin: No Rash or Ulcers, No Nodules or Sclerosis, - Neurological: Alert and Oriented x 3, NL Sensation Result Diagrams: 05/25/16 05:47 05/25/16 05:47 Assess/Plan/Problems-Billing Assessment: 66 yo F presents after a bout of gastroenteritis 3 weeks ago with epigastric abd pain and symptomatic anemia. - Patient Problems (1) SBO (small bowel obstruction) Current Visit: Yes Status: Acute Code(s): K56.69 - OTHER INTESTINAL OBSTRUCTION SNOMED Code(s): 252825142 Comment: S/P SB resection wtih primary ansatamosi, bx mesenteric implant. Post-op care per Dr. Morrison. (2) Iron deficiency anemia Current Visit: Yes Status: Acute Code(s): D50.9 - IRON DEFICIENCY ANEMIA, UNSPECIFIED SNOMED Code(s): 99183010 Comment: Iron studies confirm iron deficiency. 2 doses iron sucrose ordered. 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 Pathology pending. Status and Disposition: inpatient for partial SBO
--- NOTE | 2016-05-25 08:42 | PN ---
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 without nausea or vomiting Objective: Temp Pulse Resp BP Pulse Ox 97.4 F 82 18 121/56 100 05/25/16 07:41 05/25/16 07:41 05/25/16 07:41 05/25/16 07:41 05/25/16 07:41 Intake & Output 05/23/16 05/24/16 05/25/16 05/26/16 06:59 06:59 06:59 06:59 Intake Total 3049 2619 2914 Output Total 3975 Balance 3049 2619 -1061 Weight 118 lb Intake: IV Fluids 8096 880 2719 GENTAMYCIN 250MG IV 250 LR 1200 NS (0.9%) 1468 844 954 IVPB 131 Protonix 131 Oral 1450 1775 510 Output: Fischer 3975 Other: Estimated Void Medium # Bowel Movements 0 # Voids 3 3 PEX: Comfortable in chair Lungs are clear with decreased breath sounds in the bases Abdomen is soft and non-distended. Dressing is intact. Extremities without edema Laboratory Results - last 24 hr 05/21/16 05/24/16 05/24/16 11:10 01:23 09:10 WBC RBC Hgb 8.5 L Hct 31 L MCV MCH MCHC RDW Plt Count MPV Hem Pathologist Commnt Sodium Potassium Chloride Carbon Dioxide Anion Gap BUN Creatinine Est GFR ( Amer) Est GFR (Non-Af Amer) BUN/Creatinine Ratio Glucose Calcium Flow Intrp 2-8 Markers Flow Intrp 16+ Markers Blood Type O Positive Antibody Screen Negative 05/24/16 05/25/16 05/25/16 13:30 05:47 05:47 WBC 13.0 H RBC 5.33 Hgb 8.7 L Hct 30 L MCV 57 L MCH 16 L MCHC 29 L RDW 30 H Plt Count 185 MPV 9 Hem Pathologist Commnt Sodium 132 L Potassium 3.2 L Chloride 101 Carbon Dioxide 24 Anion Gap 7 BUN 6 Creatinine 0.71 Est GFR ( Amer) 105.9 Est GFR (Non-Af Amer) 82.4 BUN/Creatinine Ratio 8.5 Glucose 94 Calcium 8.2 L Flow Intrp 2-8 Markers TNP Flow Intrp 16+ Markers TNP Blood Type Antibody Screen Assessment: POD# 1 s/p exlap with small bowel resection of obstructing small bowel mass. Ileus Anemia Hypokalemia Plan: D/C fischer Replete K+ Increase activity PPI and sub q heparin Recheck labs in AM Operative findings discussed with patient and her last night and questions answered.
[2016-05-25] MEDS ORDERED: NS 0.9% 250 ML* 250 ML ONE (08:45)
[2016-05-25] MEDS: Iron Sucrose* 200 MG in NS 0.9% 250 ML* 250 ML IVPB SCH (09:12)
[2016-05-25] MEDS: Potassium Chlor TAB* 20 MEQ TAB.ER PO SCH ×2 (09:12→21:25)
[2016-05-25] MEDS: Pantoprazole IV* 40 MG IV SCH (11:55)
[2016-05-25] MEDS: KCL 10 MEQ/50 ML IVPREMIX* 10 MEQ/50 ML BAG IV SCH ×3 (11:55→17:47)
[2016-05-26] MEDS ORDERED: Prochlorperazine TAB* 10 MG PO PRN (02:38)
[2016-05-26] MEDS: Heparin VIAL(*) 5000 UNITS/ML VIAL (FIVE THOUSAND) SUBCUT SCH ×3 (05:37→21:47)
[2016-05-26 07:15] LABS: BUN/Creatinine Ratio 9.7 (8-20); Calcium 8.6 mg/dL (8.6-10.3); EGFR African American 123.9 (>60); EGFR Non-African American 96.3 (>60); Phosphorus 2.9 mg/dL (2.5-5.0); Potassium 3.9 mmol/L (3.5-5.0)
[2016-05-26] MEDS: NS 0.9% 1000 ML* 1,000 ML IV SCH ×2 (07:44→21:37)
--- NOTE | 2016-05-26 08:24 | PN ---
Progress Note - Progress Note SOAP: Subjective: Without complaint today although she had some nausea in the middle of the night , no vomiting. No flatus or BM, tolerated sips of liquids Ambulating in the halls Pain is adequately controlled. Objective: Temp Pulse Resp BP Pulse Ox 99.1 F 63 16 142/62 95 05/26/16 04:09 05/26/16 04:09 05/26/16 06:30 05/26/16 04:09 05/26/16 06:30 Intake & Output 05/24/16 05/25/16 05/26/16 05/27/16 06:59 06:59 06:59 06:59 Intake Total 2619 2914 1440 1192 Output Total 3975 2900 700 Balance 2619 -1061 -1460 492 Intake: IV Fluids 844 2404 1192 GENTAMYCIN 250MG IV 250 LR 1200 NS (0.9%) 375 807 9327 Oral 4578 609 4305 Output: Urine 2800 700 Calderon 3975 100 Other: Estimated Void Medium # Voids 3 PEX: Comfortable Lungs are CTA Cor is RRR Abd is soft and non-distended. Incision is clean and dry. There are no bowel sounds present. 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 Plan: Will discuss pathology report with patient and today and also present at Tumor Board today-will require Oncology consult D/C DISTANCE EDUCATION FACULTY LIAISON Sips of clear liquids until ileus resolves Increase activity Pul toilet/sub q heparin/PPI
[2016-05-26] MEDS ORDERED: HYDROmorphone INJ* 1 MG/ML CARPUJECT SYRINGE IV SLOW PU PRN (08:30)
[2016-05-26] MEDS: Iron Sucrose* 200 MG in NS 0.9% 250 ML* 250 ML IVPB SCH (08:39)
[2016-05-26] MEDS: Pantoprazole IV* 40 MG IV SCH (08:39)
[2016-05-26] MEDS: Potassium Chlor TAB* 20 MEQ TAB.ER PO SCH ×2 (08:39→20:10)
--- NOTE | 2016-05-26 20:06 | PN ---
Subjective Date of Service: 05/26/16 Interval History: Patient sleeping during my visit. I chose to not wake her. Objective Active Medications: Acetaminophen (Tylenol Tab*) 650 mg PO Q4H PRN PRN Reason: FEVER/PAIN Heparin Sodium (Porcine) (Heparin Vial(*)) 5,000 units SUBCUT Q8HR [facility] Last Admin: 05/26/16 14:53 Dose: 5,000 units Hydromorphone HCl (Dilaudid Iv*) 0.5 mg IV SLOW PU Q1H PRN PRN Reason: PAIN Sodium Chloride (Ns 0.9% 1000 Ml*) 1,000 mls @ 75 mls/hr IV PER RATE [facility] Last Admin: 05/26/16 07:44 Dose: 75 mls/hr Ketorolac Tromethamine (Toradol Inj*) 15 mg IV PUSH Q6H PRN PRN Reason: PAIN Last Admin: 05/25/16 05:34 Dose: 15 mg Ondansetron HCl (Zofran Inj*) 4 mg IV Q6H PRN PRN Reason: NAUSEA Last Admin: 05/26/16 00:17 Dose: 4 mg Pantoprazole Sodium (Protonix Iv*) 40 mg IV DAILY [facility] Last Admin: 05/26/16 08:39 Dose: 40 mg Potassium Chloride (Klor Con Er Tab*) 20 meq PO BID [facility] Last Admin: 05/26/16 08:39 Dose: 20 meq Prochlorperazine (Compazine Tab*) 10 mg PO Q6HR PRN PRN Reason: NAUSEA Last Admin: 05/26/16 02:49 Dose: 10 mg Temazepam (Restoril Cap*) 15 mg PO BEDTIME PRN PRN Reason: INSOMNIA Vital Signs 05/25/16 05/25/16 05/25/16 21:00 22:30 23:00 Temperature Pulse Rate Respiratory 16 16 16 Rate Blood Pressure (mmHg) O2 Sat by Pulse 93 95 Oximetry 05/25/16 05/26/16 05/26/16 23:55 01:00 03:00 Temperature 98.8 F Pulse Rate 64 Respiratory 16 16 16 Rate Blood Pressure 145/57 (mmHg) O2 Sat by Pulse 96 96 96 Oximetry 05/26/16 05/26/16 05/26/16 04:09 05:00 06:30 Temperature 99.1 F Pulse Rate 63 Respiratory 16 16 16 Rate Blood Pressure 142/62 (mmHg) O2 Sat by Pulse 97 95 95 Oximetry 05/26/16 05/26/16 05/26/16 07:00 08:10 08:15 Temperature 98.2 F Pulse Rate 64 Respiratory 15 15 18 Rate Blood Pressure 122/50 (mmHg) O2 Sat by Pulse 97 97 Oximetry 05/26/16 05/26/16 05/26/16 09:00 11:20 15:32 Temperature 97.8 F 98.2 F Pulse Rate 70 63 Respiratory 16 18 18 Rate Blood Pressure 142/57 143/50 (mmHg) O2 Sat by Pulse 94 100 96 Oximetry 05/26/16 19:31 Temperature 98.1 F Pulse Rate 65 Respiratory 16 Rate Blood Pressure 142/61 (mmHg) O2 Sat by Pulse 99 Oximetry Oxygen Devices in Use Now: None Appearance: Lying on her side in bed, asleep. Looks comfortable. Respiratory: Symmetrical Chest Expansion and Respiratory Effort, - - Respirations quiet and regular Result Diagrams: 05/25/16 05:47 05/26/16 06:48 Assess/Plan/Problems-Billing Assessment: 66 yo F presents after a bout of gastroenteritis 3 weeks ago with epigastric abd pain and symptomatic anemia. - Patient Problems (1) SBO (small bowel obstruction) Current Visit: Yes Status: Acute Code(s): K56.69 - OTHER INTESTINAL OBSTRUCTION SNOMED Code(s): 921230085 Comment: S/P SB resection wtih primary ansatamosis, bx mesenteric implant. 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 Post-op care per Dr. Morrison. Pt presented to Tumor Board, awaiting oncology consult. (2) Iron deficiency anemia Current Visit: Yes Status: Acute Code(s): D50.9 - IRON DEFICIENCY ANEMIA, UNSPECIFIED SNOMED Code(s): 41734434 Comment: Iron studies confirm iron deficiency. 2 doses iron sucrose ordered. 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 Pt presented to Tumor Board, awaiting oncology consult. Status and Disposition: inpatient for partial SBO
[2016-05-27] MEDS: Heparin VIAL(*) 5000 UNITS/ML VIAL (FIVE THOUSAND) SUBCUT SCH ×3 (06:03→21:17)
[2016-05-27 07:11] LABS: Hematocrit 28 % (35-47); Hemoglobin 8.3 g/dl (12.0-16.0); Mean Corpuscular HGB Conc 30 g/dl (31-36); Mean Corpuscular Hemoglobin 17 pg (27-31); Mean Corpuscular Volume 58 fL (80-97); Red Cell Distribution Width 32 % (10.5-15); White Blood Count 6.5 10^3/ul (3.5-10.8)
[2016-05-27 07:13] LABS: Comments Flag Yes
[2016-05-27 07:14] LABS: Add Diff/Slide Review? Slide Review Added
--- NOTE | 2016-05-27 07:53 | PN ---
Progress Note - Progress Note SOAP: Subjective: Passed some flatus last night, no BM No N/V--tolerating clear liquids Minimal pain-has not used Dilaudid Objective: Temp Pulse Resp BP Pulse Ox 98.0 F 61 15 127/49 95 05/27/16 03:26 05/27/16 03:26 05/27/16 03:26 05/27/16 03:26 05/27/16 03:26 Intake & Output 05/25/16 05/26/16 05/27/16 05/28/16 06:59 06:59 06:59 06:59 Intake Total 2914 1440 2800 Output Total 3975 2900 3450 Balance -1061 1460 -650 Intake: IV Fluids 2404 2162 GENTAMYCIN 250MG IV 250 LR 1200 NS (0.9%) 954 2162 IVPB 278 Iron Sucrose\ 278 Oral 510 1440 360 Output: Urine 2800 3450 Calderon 3975 100 PEX: Comfortable Lungs are CTA Abd is soft and slightly distended. Incision is clean and dry. Bowel sounds are present throughout. 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 CHIRAGTN will be covering for me through 05/31.
[2016-05-27] MEDS ORDERED: oxyCODONE/Acetamin 5/325 MG* TAB PO PRN (07:54)
[2016-05-27] MEDS: Pantoprazole IV* 40 MG IV SCH (08:34)
[2016-05-27] MEDS: Potassium Chlor TAB* 20 MEQ TAB.ER PO SCH ×2 (08:34→21:16)
[2016-05-27] MEDS: NS 0.9% 1000 ML* 1,000 ML IV SCH (10:54)
[2016-05-27] MEDS ORDERED: diPHENhydraMINE PO* 25 MG PO PRN (21:13)
[2016-05-28] MEDS: Heparin VIAL(*) 5000 UNITS/ML VIAL (FIVE THOUSAND) SUBCUT SCH ×2 (06:16→14:08)
[2016-05-28] MEDS: Pantoprazole IV* 40 MG IV SCH (08:57)
[2016-05-28] MEDS: Potassium Chlor TAB* 20 MEQ TAB.ER PO SCH (08:57)
[2016-05-28 12:55] VITALS: BP 120/57
--- NOTE | 2016-05-29 15:32 | DS ---
DISCHARGE SUMMARY: DATE OF ADMISSION: 05/21/16 DATE OF DISCHARGE: 05/28/16 HOSPITAL COURSE: Please refer to admission history and physical for admission details. Briefly, the patient was admitted with abdominal pain and signs of partial small bowel obstruction as well as having a significant anemia. She had been worked up with both the upper and lower endoscopies, which were negative. She was transfused 2 units for her profound microcytic anemia. Ultimately, she was taken to the operating room by Dr. Vigil on 05/24/16 and underwent exploratory laparotomy with small bowel resection for a palpable tumor with what appeared to be regional implants in the mesentery. 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 The patient has had an otherwise uneventful postoperative course with gradual resumption of GI function and control of pain. As of the morning of discharge, she was tolerating a full-liquid diet well, was passing both flatus and loose stool, and was needing very little oral analgesics. PHYSICAL EXAMINATION: Vital Signs: As of the morning of discharge, temperature 98.1, blood pressure 104/62, pulse 73, respirations 18, room air saturation 97%. General: Well-nourished, somewhat cachectic-appearing female, in no acute distress. Heart: Regular rate and rhythm. No murmur noted. Lungs : Clear to auscultation. No wheezes or rales. Abdomen: Healing midline incision with intact nazario. Minor erythema near the umbilicus. No expressible exudate. Minor tenderness to palpation. Slight tympany to percussion. Bowel sounds are present. Extremities: No edema. LABORATORY DATA: As of May 27, white blood cell count 6500, hemoglobin of 8.3, hematocrit 28. Chemistries as of 05/26/16 were essentially normal. IMPRESSION: Status post exploratory laparotomy with small bowel resection for carcinoid (see separate pathology). PLAN: Discharged home today. Instructions were reviewed in both written format and verbally with the patient regarding diet, wound care, and activity. She has a return appointment in our office on 06/04/16, at which time, referral will be made to the [facility]. VARSHA CHATMAN CC: Jasmin Pfeiffer NP at [facility]; [facility] * [id number]/[facility] #: [id number] [facility]ILDREN'[facility] HOSPITALDerrick
== END 2016-05-28 14:05 | disposition home health service (06) | DRG 330 ==
LOC: ED 10:22 → MED 12:45 → OBSVTOIN 05-22 17:54 → SSU 05-24 18:18
PROVIDERS: ADMIT Internal Medicine; ATTEND Surgery
PROC: 0DJ08ZZ Inspection of Upper Intestinal Tract, Via Natural or Artificial Opening Endoscopic (ICD-10-PCS; 2016-05-21)
PROC: 30233N1 Transfusion of Nonautologous Red Blood Cells into Peripheral Vein, Percutaneous Approach (ICD-10-PCS; 2016-05-21)
PROC: 0DJD8ZZ Inspection of Lower Intestinal Tract, Via Natural or Artificial Opening Endoscopic (ICD-10-PCS; 2016-05-22)
PROC: 0DBV0ZX Excision of Mesentery, Open Approach, Diagnostic (ICD-10-PCS; 2016-05-24)
PROC: 0DBB0ZZ Excision of Ileum, Open Approach (ICD-10-PCS; principal; 2016-05-24 12:45)
DX: C7A.012 Malignant carcinoid tumor of the ileum (principal); C7B.04 Secondary carcinoid tumors of peritoneum; K56.60 Unspecified intestinal obstruction; C7B.01 Secondary carcinoid tumors of distant lymph nodes; K56.7 Ileus, unspecified; D50.9 Iron deficiency anemia, unspecified; Z83.3 Family history of diabetes mellitus; Z88.1 Allergy status to other antibiotic agents; Z82.3 Family history of stroke; Z82.5 Family history of asthma and other chronic lower respiratory diseases; R16.1 Splenomegaly, not elsewhere classified; E87.6 Hypokalemia; D63.0 Anemia in neoplastic disease; N83.312 Acquired atrophy of left ovary; N83.311 Acquired atrophy of right ovary
CPT/HCPCS: 36415; 74177; 80048; 80053; 82272; 82607; 82728; 82746; 83010; 83540; 83550; 83615; 83690; 83735; 84100; 85014; 85018; 85025; 85027; 85045; 85060; 85610; 85730; 86850; 86900; 86901; 86922; 88184; 88185; 88188; 88305; 88307; 88341; 88342; 90732; 93005; A9270-GY; C1776; G0378; J1170; J1580; J1644; J1756; J1885; J2250; J2270; J2405; J2704; J3010; J3475; J3480; J3490; P9040; Q0164; Q9967